=== PATIENT | female | born 1990 | race Caucasian/White ===

== ENCOUNTER 2017-05-11 11:00 | Emergency (ER) | payer OTHER ==
[~2017-05-11] VITALS: Ht 165.1 cm; Wt 91.2 kg
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
[2017-05-11 12:16] VITALS: BP 122/59
[2017-05-11] MEDS ORDERED: DIPHTH,PERTUSS(ACELL),TET TOX 0.5 ML DISP.SYRIN. VAX IM ONE (12:30)
[2017-05-11] MEDS ORDERED: MUPI15CR TP (13:29)
== END 2017-05-11 13:54 | disposition home or self-care (01) ==
LOC: ER 11:00
DX: S71.102D Unspecified open wound, left thigh, subsequent encounter (principal); S76.812D Strain of other specified muscles, fascia and tendons at thigh level, left thigh, subsequent encounter; X95.9XXD Assault by unspecified firearm discharge, subsequent encounter; Y93.89 Activity, other specified; Y99.8 Other external cause status; Y92.89 Other specified places as the place of occurrence of the external cause
CPT/HCPCS: 90471; 90715; 99283-25

== ENCOUNTER 2019-08-03 01:40 | Emergency (ER) | payer BC, OTHER ==
[~2019-08-03] VITALS: Ht 165.1 cm; Wt 91.2 kg
[2019-08-03 01:40] VITALS: BP 128/62
[~2019-08-03 01:40] MED LIST: MUPI15CR TP
--- NOTE | 2019-08-03 01:56 | PHYS DOC ---
Past History Past Medical History: No Pertinent History Past Surgical History: No Surgical History Alcohol Use: Occasionally Drug Use: None Adult General Chief Complaint Chief Complaint: ".. I ve had this really bad sore throat the past four days.. it just not getting better..." HPI HPI Patient is a 28 year old female who presents with above hx and complaints of sore throat. Patient subjective complaints of fever and chills. No history of travel. No specific ill contacts. 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 No history immunosuppression. He not receive flu vaccination this year. She last had Tylenol at approximately 10 AM yesterday Review of Systems Review of Systems Constitutional: Complaints of fever or chills [] Eyes: Denies change in visual acuity, redness, or eye pain [] HENT:, Complaints of nasal congestion and sore throat [] Respiratory: Denies cough or shortness of breath [] Cardiovascular: No additional information not addressed in HPI [] GI: Denies abdominal pain, nausea, vomiting, bloody stools or diarrhea [] : Denies dysuria or hematuria [] Musculoskeletal: Denies back pain or joint pain [] Integument: Denies rash or skin lesions [] Neurologic: Denies headache, focal weakness or sensory changes [] Endocrine: Denies polyuria or polydipsia [] All other systems were reviewed and found to be within normal limits, except as documented in this note. Family History Family History Noncontributory Current Medications Current Medications See nursing for home meds Allergies Allergies Allergies Coded Allergies Type Severity Reaction Last Updated Verified No Known Drug Allergies 05/11/17 No Physical Exam Physical Exam Constitutional: Well developed, well nourished, in moderate acute distress, non- toxic appearance. [] HENT: Normocephalic, atraumatic, bilateral external ears normal, oropharynx moist, ejected pharynx, no oral exudates, nose swollen turbinates and clear rhinorrhea. Postnasal drainage. Eyes: PERRLA, EOMI, conjunctiva normal, no discharge. [] Neck: Normal range of motion, no tenderness, supple, no stridor. [] Mild adenopathy anterior chain Cardiovascular:Heart rate regular rhythm, no murmur [] Lungs & Thorax: Bilateral breath sounds equal at apex on auscultation [] Abdomen: Bowel sounds normal, soft, no tenderness, no masses, no pulsatile masses. [] Skin: Warm, dry, no erythema, no rash. [] Back: No tenderness, no CVA tenderness. [] Extremities: No tenderness, no cyanosis, no clubbing, ROM intact, no edema. [] Neurologic: Alert and oriented X 3, normal motor function, normal sensory function, no focal deficits noted. [] Psychologic: Affect anxious, judgement normal, mood normal. [] EKG EKG [] Radiology/Procedures Radiology/Procedures [] Course & Med Decision Making Course & Med Decision Making Pertinent Labs and Imaging studies reviewed. (See chart for details) Gargle with Listerine 4 times a day. Push fluids. Take Tylenol and ibuprofen as needed for pain. Follow-up primary care. Return of any concerns. Take Keflex 500x3 times a day. Follow-up primary care. Return if any concerns. Impression: 1. Pharyngitis- strept. 2. Mild urinary tract infection [] Dragon Disclaimer Dragon Disclaimer This electronic medical record was generated, in whole or in part, using a voice recognition dictation system. Departure Departure: Disposition: 01 HOME/RESIDENCE PRIOR TO ADM Condition: STABLE Referrals: PCP,NO (PCP) Scripts Cephalexin (KEFLEX) 500 Mg Capsule 500 MG PO TID for Strept for 10 Days, BOTTLE Prov: TIFFANIE CHACKO MD 08/03/19 Noemy Disclaimer This chart was dictated in whole or in part using Voice Recognition software in a busy, high-work load, and often noisy Emergency Department environment. It may contain unintended and wholly unrecognized errors or omissions. TIFFANIE CHACKO MD Aug 03, 2019 01:56
[2019-08-03 02:29] LABS: BARBITURATES NEG (NEG); BENZODIAZEPINES NEG (NEG); CANNABINOIDS NEG (NEG); COCAINE NEG (NEG); METHADONE NEG (NEG); OPIATES NEG (NEG); PHENCYCLIDINE NEG (NEG)
[2019-08-03] MEDS ORDERED: prednisoLONE SOD PHOSPHATE 15 MG/5 ML SOLUTION PO ONE (02:30)
[2019-08-03 02:31] LABS: COLOR,URINE YELLOW
[2019-08-03 02:32] LABS: BACTERIA,URINE FEW /HPF (0-FEW); BILIRUBIN,URINE NEG (NEG); CLARITY,URINE HAZY; GLUCOSE,URINE NEG (NEG); NITRITE,URINE NEG (NEG); RBC,URINE 0 /HPF (0-2); SQUAMOUS EPITHELIAL CELL,UR FEW /LPF; UROBILINOGEN,URINE 0.2 mg/dL (0.2 mg/dL)
[2019-08-03] MEDS ORDERED: CEPH-264 PO (02:33)
[2019-08-03 02:34] LABS: AMPHETAMINE/METHAMPHETAMINE NEG (NEG)
[2019-08-03 02:36] LABS: U PREG PATIENT NEGATIVE (NEG)
[2019-08-03] MEDS ORDERED: ACETAMINOPHEN 500 MG TABLET PO ONE (03:00)
[2019-08-03] MEDS ORDERED: CEPHALEXIN 250 MG CAPSULE PO ONE (03:00)
[2019-08-03] MEDS ORDERED: IBUPROFEN 600 MG TABLET. PO ONE (03:30)
== END 2019-08-03 03:08 | disposition home or self-care (01) ==
LOC: ER 01:40
DX: J02.0 Streptococcal pharyngitis (principal); B95.0 Streptococcus, group A, as the cause of diseases classified elsewhere; N39.0 Urinary tract infection, site not specified
CPT/HCPCS: 36415; 80307; 81001; 81025; 87086; 87880; 99284